=== PATIENT | male | born 2000 | race Caucasian/White ===

== ENCOUNTER 2021-07-05 11:24 | Emergency (ER) | payer SELFPAY ==
[~2021-07-05 11:24] MED LIST: MEDROL 4MG DOSEP4 MG PO; NAPROXEN500 MG PO; ZOFRAN4 MG PO; ZPAK PO
== END 2021-07-05 13:54 | disposition home or self-care (01) ==
LOC: FER 11:24
DX: B34.9 Viral infection, unspecified (principal); F17.210 Nicotine dependence, cigarettes, uncomplicated; Z20.822 Contact with and (suspected) exposure to COVID-19
CPT/HCPCS: 93005; U0002

== ENCOUNTER 2021-08-06 00:13 | Emergency (ER) | payer SELFPAY ==
[2021-08-06 01:18] LABS: CORONAVIRUS 2019 SARS-COV-2 NEGATIVE (NEGATIVE); INFLUENZA A NAA NEGATIVE (NEGATIVE)
[2021-08-06] MEDS ORDERED: FLONASE ALLERG9.9 ML (01:33)
[2021-08-06] MEDS ORDERED: NAPROXEN500 MG PO (01:33)
[2021-08-06] MEDS ORDERED: MUCINEX600 MG PO (01:33)
== END 2021-08-06 02:00 | disposition home or self-care (01) ==
LOC: FER 00:13
PROVIDERS: Emergency Medicine
DX: J30.2 Other seasonal allergic rhinitis (principal); R03.0 Elevated blood-pressure reading, without diagnosis of hypertension; Z87.891 Personal history of nicotine dependence; Z20.822 Contact with and (suspected) exposure to COVID-19
CPT/HCPCS: 99283; U0002

== ENCOUNTER 2021-08-24 09:16 | Emergency (ER) | payer OTHER ==
[~2021-08-24] VITALS: Ht 175.3 cm; Wt 127.0 kg
[~2021-08-24 09:16] MED LIST changes: +FLONASE ALLERG9.9 ML; +MUCINEX600 MG PO
[2021-08-24] MEDS ORDERED: ATARAX25 MG PO (09:40)
[2021-08-24] MEDS ORDERED: MEDROL 4MG DOSEP4 MG PO (09:40)
== END 2021-08-24 10:32 | disposition home or self-care (01) ==
LOC: FER 09:16
DX: L23.7 Allergic contact dermatitis due to plants, except food (principal); Z87.891 Personal history of nicotine dependence
CPT/HCPCS: J1100